=== PATIENT | male | born 1960 | race Caucasian/White ===

== ENCOUNTER → 2019-08-16 | Outpatient (CLI) | payer OTHER ==
[2019-08-16 11:52] LABS: ALBUMIN 4.3 g/dL (3.4-5.0); CALCIUM 9.1 mg/dL (8.5-10.1); POTASSIUM 4.1 mmol/L (3.5-5.1); TOTAL BILIRUBIN 0.6 mg/dL (<0.1-1.0); TOTAL PROTEIN 8.3 g/dL (6.4-8.2)
[2019-08-16 12:17] LABS: FOLIC ACID 18.8 ng/mL (8.6-58.9); TSH 1.61 uIU/mL (0.358-3.740)
[2019-08-17 00:06] LABS: IgA 369 mg/dL (90-386); IgG 903 mg/dL (700-1600); IgM 115 mg/dL (20-172)
[2019-08-18 19:10] LABS: ANA INTERPRETATION Negative (())
== END ==
LOC: MRI 10:31
PROVIDERS: Psychiatry & Neurology Neurology
DX: M50.30 Other cervical disc degeneration, unspecified cervical region (principal); M48.02 Spinal stenosis, cervical region; G95.9 Disease of spinal cord, unspecified; G58.9 Mononeuropathy, unspecified; M25.78 Osteophyte, vertebrae